=== PATIENT | male | born 1960 | race Caucasian/White ===

== ENCOUNTER 2020-07-28 14:43 | Emergency (ER) | payer MEDICARE, BC, SELFPAY ==
[2020-07-28] VITALS (11 sets, daily range): BP systolic 95–180; BP diastolic 52–94; PULSE 62–99; RESP 16–18; TEMP 36.4; O2SAT 96–100
--- NOTE | 2020-07-28 14:58 | CT_ITS ---
PROCEDURE: CT HEAD/BRAIN WO CON CLINICAL INDICATION: weakness left-sided weakness COMPARISON: No exams were available for comparison TECHNIQUE: Axial images obtained. All CT scans at the facility use one or more dose reduction, viz: automated exposure control, ma/kV adjustment per patient size (including targeted exams where dose is matched to indication, i.e. head), or iterative reconstruction technique. FINDINGS: No midline shift, mass effect, intracranial hemorrhage, hydrocephalus, or extra-axial fluid collection is evident. There is generalized atrophy with hypoattenuation of the periventricular white matter consistent with microangiopathic changes. There is a small skip area in the images between image 32 and image 33.. The calvarium has an unremarkable appearance. No mastoid effusion. No sinus air-fluid level. IMPRESSION: No acute intracranial finding Dictated by: Humberto To MD 07/28/2020 15:19 Humberto To MD in [facility] 07/28/2020 15:19
--- NOTE | 2020-07-28 15:02 | PC.NURSE ---
pt to CT
--- NOTE | 2020-07-28 15:15 | PC.NURSE ---
Pt returned from rad.
--- NOTE | 2020-07-28 15:29 | XR_ITS ---
PROCEDURE: XR CHEST PORTABLE CLINICAL HISTORY: weakness Left-sided weakness, smoker COMPARISON: CR CXR CHEST(2 VIEWS-NOT PORTABLE) from 06/09/2014 FINDINGS: Cardiomegaly without failure. COPD with chronic interstitial changes. No lobar consolidation or collapse. No acute bony abnormalities. IMPRESSION: Chronic changes with COPD. Dictated by: Humberto To MD 07/28/2020 18:13 Humberto To MD in [facility] 07/28/2020 18:13
[2020-07-28 15:40] LABS: Basophils # 0.1 K/mm3 (0-0.2); Basophils % 0.9 % (0.1-2.0); Eosinophils # 0.2 K/mm3 (0.0-0.4); Eosinophils % 1.1 % (0.1-12.0); Hematocrit 38.9 % (42.0-52.0); Lymphocytes # 0.6 K/mm3 (0.7-4.5); Lymphocytes % 3.9 % (10-50); Mean Corpuscular HGB Conc 30.9 g/dL (31.8-35.4); Mean Corpuscular Hemoglobin 25.7 pg (27.0-31.2); Mean Corpuscular Volume 83.1 fl (80-94); Mean Platelet Volume 9.3 fl (7.4-10.4); Monocytes # 0.4 K/mm3 (0.1-1.0); Monocytes % 2.4 % (1.7-9.3); Neutrophils # 13.8 K/mm3 (1.8-7.8); Neutrophils % 91.8 % (37.0-80.0); Platelet Count 180 K/mm3 (142-424); Red Blood Count 4.68 M/mm3 (4.60-6.20); Red Cell Distribution Width 17.7 % (11.5-17.5)
--- NOTE | 2020-07-28 15:41 | [facility].EDGENADL ---
ED Disposition Clinical Impression: Weakness, Dyspnea on exertion Disposition: Home, Self-Care Condition on Discharge: Fair Additional Instructions: See your primary care doctor as soon as possible, call Thursday to make an appointment. Return to emergency department if your condition worsens. Preferable that she go to an emergency department at a hospital where dialysis can be performed. Referrals: Ghassan Cabrales [Primary Care Provider] - - Critical Care Critical Care Time: No Attestation: On 07/28/20, the high probability of a clinically significant, sudden or life threatening deterioration of the following system(s) required my full and direct attention, intervention and personal management. The time I documented below is in addition to time spent performing reported procedures but includes the following listed in this critical care notation. Medical Decision Making - [place] Inquiry Pt receiving controlled substance: No Vital Signs: 07/28/20 14:45 07/28/20 15:43 07/28/20 16:19 Temperature 97.6 F Temperature Source Oral Pulse Rate [Right Radial] 93 H 99 H 88 Respiratory Rate 18 Blood Pressure [Right Arm] 129/72 102/67 L 117/73 Blood Pressure Mean [Right Arm] 91 78 87 Blood Pressure Source [Right Arm] Automatic Cuff Automatic Cuff Automatic Cuff Blood Pressure Position [Right Arm] Sitting Sitting Sitting 02 Sat by Pulse Oximetry 98 97 98 Oxygen Delivery Method Room Air Room Air Room Air 07/28/20 16:33 07/28/20 16:57 07/28/20 17:17 Temperature Temperature Source Pulse Rate [Right Radial] 80 68 79 Respiratory Rate Blood Pressure [Right Arm] 98/55 L 134/69 119/54 L Blood Pressure Mean [Right Arm] 69 90 75 Blood Pressure Source [Right Arm] Automatic Cuff Automatic Cuff Automatic Cuff Blood Pressure Position [Right Arm] Sitting Sitting Sitting 02 Sat by Pulse Oximetry 100 96 99 Oxygen Delivery Method Room Air Room Air Room Air 07/28/20 18:10 07/28/20 18:42 07/28/20 19:00 Temperature Temperature Source Pulse Rate [Right Radial] 77 76 62 Respiratory Rate 17 Blood Pressure [Right Arm] 95/52 L 112/61 180/94 H Blood Pressure Mean [Right Arm] 66 78 122 Blood Pressure Source [Right Arm] Automatic Cuff Automatic Cuff Automatic Cuff Blood Pressure Position [Right Arm] Sitting Sitting Supine 02 Sat by Pulse Oximetry 99 100 98 Oxygen Delivery Method Room Air Room Air Room Air 07/28/20 19:30 Temperature Temperature Source Pulse Rate [Right Radial] 92 H Respiratory Rate 17 Blood Pressure [Right Arm] 154/84 H Blood Pressure Mean [Right Arm] 107 Blood Pressure Source [Right Arm] Automatic Cuff Blood Pressure Position [Right Arm] Supine 02 Sat by Pulse Oximetry 98 Oxygen Delivery Method Room Air - Lab Data Lab Results 07/28/20 15:00: NT-Pro-B Natriuret Pep [id number] H 07/28/20 15:20: WBC 15.0 H, RBC 4.68, Hgb 12.0 L, Hct 38.9 L, MCV 83.1, MCH 25.7 L, MCHC 30.9 L, RDW 17.7 H, Plt Count 180, MPV 9.3, Neut % (Auto) 91.8 H, Lymph % (Auto) 3.9 L, Bonner % (Auto) 2.4, Eos % (Auto) 1.1, Baso % (Auto) 0.9, Neut # (Auto) 13.8 H, Lymph # (Auto) 0.6 L, Bonner # (Auto) 0.4, Eos # (Auto) 0.2, Baso # (Auto) 0.1, Total Counted 100, Neutrophils % (Manual) 84 H, Band Neutrophils % 2.0, Lymphocytes % (Manual) 9 L, Monocytes % (Manual) 4, Eosinophils % (Manual) 1, Platelet Estimate Normal, Hypochromasia 2+, Poikilocytosis 1+, Stomatocytes 1+ 07/28/20 15:20: PT 12.1 H, INR 1.10 07/28/20 15:20: Sodium 131 L, Potassium 4.2, Chloride 98, Carbon Dioxide 20 L, Anion Gap 17.2 H, BUN 58 H, Creatinine 9.20 H, Estimated Creat Clear 9, Estimated GFR 6 L*, Est GFR ( Amer) 7 L*, Glucose 101 H, Calcium 8.7 07/28/20 15:20: Total Bilirubin 0.7, Direct Bilirubin 0.6 H, Conjugated Bilirubin 0.0, Indirect Bilirubin 0.1, Unconjugated Bilirubin 0.1, AST 20, ALT 8 L, Alkaline Phosphatase 92, Troponin I 0.09 H, Total Protein 7.6, Albumin 3.8 07/28/20 15:20: SARS-CoV-2 IgG Ab (Rapid) Negative, SARS-CoV-2 IgM Ab (Rapid) Negative 07/28/20
[2020-07-28 15:42] LABS: Chloride 98 mmol/L (98-107); MANUAL DIFFERENTIAL MANUAL DIFFERENTIAL (MANUAL DIFF); Potassium 4.2 mmoL/L (3.5-5.1); Sodium 131 mmol/L (136-145)
--- NOTE | 2020-07-28 15:42 | PC.NURSE ---
MARLENY RODRIGUEZ at
[2020-07-28 15:44] LABS: Blood Urea Nitrogen 58 mg/dl (9-20); Creatinine Clearance Estimated 9 mL/min (50-200); Estimated Glomerular Filt Rate 6 ml/min (>60); GFR (African American) 7 ML/MIN (>60)
[2020-07-28 15:45] LABS: Anion Gap 17.2 mEq/L (5-15); Calcium 8.7 mg/dl (8.4-10.2); Carbon Dioxide 20 mmol/L (22.0-30.0); Glucose 101 mg/dl (74-100)
[2020-07-28 15:47] LABS: Prothrombin Time 12.1 seconds (9.4-11.8)
[2020-07-28 15:50] LABS: Eosinophils % 1 % (0-3); Hypochromasia 2+; Lymphocytes % 9 % (10-50); Monocytes % 4 % (2-9); Neutrophils % 84 % (42-76); Platelet Estimate Normal; Poikilocytosis 1+; Stomatocytes 1+; Total Cells Counted 100
--- NOTE | 2020-07-28 15:55 | INFXCTL.NOTE ---
ER notified of creatinine
--- NOTE | 2020-07-28 16:03 | ECG_ITS ---
APPROVED REPORT Exam: Resting ECG HR:91 bpm ECG Measurements Heart Rate 91 AXES RI 210 P 63 QRSd 106 QRS 99 QT 430 T 65 QTc 528 Conclusion Sinus rhythm with 1st degree AV block Rightward axis Prolonged QT Abnormal ECG Electronically signed by : Donny Linder, 07/29/2020 08:40:12
[2020-07-28 16:17] LABS: Alanine Aminotransferase 8 U/L (12-78); Albumin Level 3.8 g/dl (3.5-5.0); Alkaline Phosphatase 92 U/L (38-126); Aspartate Amino Transferase 20 U/L (17-59); Bilirubin,Direct 0.6 mg/dl (0.0-0.4); Bilirubin,Indirect 0.1 mg/dL (0.0-0.9); Bilirubin,Total 0.7 mg/dl (0.2-1.3); Bilirubin,Unconjugated 0.1 mg/dL (0.0-1.1); Total Protein,Serum 7.6 g/dl (6.3-8.2)
[2020-07-28 16:29] LABS: Troponin I 0.09 ng/ml (0.00-0.034)
[2020-07-28 16:34] LABS: Lactic Acid 1.2 mmol/L (0.7-2.1)
[2020-07-28 16:48] LABS: Coronavirus 19 IgG Antibody Negative (Negative); Coronavirus 19 IgM Antibody Negative (Negative)
[2020-07-28 16:52] LABS: Adenovirus,PCR Not Detected (NotDetected); Bordetella Pertussis Not Detected (NotDetected); Chlamydophila Pneumoniae, PCR Not Detected (NotDetected); Coronavirus 19, PCR Not Detected (NotDetected); Coronavirus 229E Not Detected (NotDetected); Coronavirus NL63 Not Detected (NotDetected); Coronavirus OC43 Not Detected (NotDetected); Coronovirus HKU1,PCR Not Detected (NotDetected); Human Metapneumovirus Not Detected (NotDetected); Influenza A, PCR Not Detected (NotDetected); Influenza AH1, 2009 Not Detected (NotDetected); Influenza AH1, PCR Not Detected (NotDetected); Influenza AH3,PCR Not Detected (NotDetected); Influenza B, PCR Not Detected (NotDetected); Mycoplasma Pneumoniae, PCR Not Detected (NotDetected); Parainfluenza 1, PCR Not Detected (NotDetected); Parainfluenza 2, PCR Not Detected (NotDetected); Parainfluenza 3, PCR Not Detected (NotDetected); Parainfluenza 4, PCR Not Detected (NotDetected); Respiratory Syncytial Virus Not Detected (NotDetected); Rhinovirus/Enterovirus Not Detected (NotDetected)
[2020-07-28 17:06] LABS: Ammonia < 9 umol/L (9-30)
[2020-07-28 17:08] LABS: NT Pro Brain Natriuretic Pep. 52200 pg/mL (0-125)
--- NOTE | 2020-07-28 19:02 | PC.NURSE ---
assisted pt with ambulation with staff assistance x1, pt ambulated better than when he arrived to ED, however pt does not assistance r/t being unsteady. Pt reports he uses a cane for ambulation at home.
--- NOTE | 2020-07-28 19:03 | PC.NURSE ---
Pt at pt bedside, pt is drowsy in nature, pt reports she just woke up, she had been asleep in the car. ER MD at BS and is aware of pt .
--- NOTE | 2020-07-28 19:13 | PC.NURSE ---
MARLENY RODRIGUEZ speaking with Dr. Dorantes who is communications intern for service pts for Dr. parrish
[2020-07-28 19:54] LABS: Microscopic, Urine URINE MICROSCOPIC (MICROSCOPIC)
[2020-07-28 20:00] LABS: Appearance,Urine CLEAR (Clear); Bilirubin,Urine Negative (Negative); Blood, Urine 1+ (Negative); Color,Urine YELLOW (Yellow); Glucose,Urine (UA) Negative (Negative); Ketones,Urine Negative (Negative); Leukocyte Esterase,Urine Negative (Negative); Nitrate,Urine Negative (Negative); PH,Urine 6.5 (5.0-8.5); Protein,Urine 2+ (Negative); Specific Gravity, Urine 1.025 (1.005-1.030); Urobilinogen,Urine 0.2 EU/dl (0.2)
[2020-07-28 20:06] LABS: Troponin I 0.09 ng/ml (0.00-0.034)
[2020-07-28 20:07] LABS: Amorphous Sediment,Urine 1+ /lpf
== END 2020-07-28 20:38 | disposition home or self-care (01) ==
PROVIDERS: Emergency Provider Emergency Medicine; PCP Pediatrics
DX: R53.83 Other fatigue (principal); Z94.4 Liver transplant status; Z99.2 Dependence on renal dialysis; J44.9 Chronic obstructive pulmonary disease, unspecified; Z11.52 Encounter for screening for COVID-19; Z01.84 Encounter for antibody response examination; F17.210 Nicotine dependence, cigarettes, uncomplicated
CPT/HCPCS: 70450; 71045; 80048; 80076; 81001; 82140; 83605; 83880; 84484; 85007; 85025; 85610; 86328; 87040; 87581; 87633; 87798; 93005; 99284; U0003